=== PATIENT | female | born 1990 | race Caucasian/White ===

== ENCOUNTER → 2016-07-15 | Outpatient (CLI) | payer SELFPAY ==
[~2016-07-15] MED LIST: ALBU8.5H INH; NO ROUTINE MEDS; PRED20TA PO
== END ==
LOC: IMA 14:50
PROVIDERS: ATTEND Nurse Practitioner Family
DX: N63 Unspecified lump in breast (principal)

== ENCOUNTER 2017-05-09 12:53 | Inpatient (IN) ==
[2017-05-09] MEDS ORDERED: ZOLPIDEM 5 MG TABLET PO PRN (14:17)
[2017-05-09] MEDS ORDERED: CARBOPROST 250 MCG/ML INJECTION IM PRN (14:17)
[2017-05-09] MEDS ORDERED: METHYLERGONOVINE 0.2 MG/ML INJECTION IM PRN (14:17)
[2017-05-09] MEDS ORDERED: LIDOCAINE 1% (10mg/ml) 2mL INJ PF SDV ID PRN (14:17)
[2017-05-09] MEDS ORDERED: ACETAMINOPHEN 500 MG TABLET PO PRN (14:17)
[2017-05-09] MEDS ORDERED: CALCIUM CARBONATE Chewable 500mg TABLET PO PRN (14:17)
[2017-05-09] MEDS ORDERED: SALINE FLUSH 10ml SYRINGE IV PRN (14:17)
[2017-05-09] MEDS ORDERED: MAG-AL + SIM ORAL LIQUID 30ml PO PRN (14:17)
[2017-05-09] MEDS ORDERED: HYDROCODONE/APAP 5mg/325mg TABLET PO PRN (14:17)
[2017-05-09] MEDS: LR 1,000 ML IV PRN ×2 (20:40→21:52)
[2017-05-09] MEDS ORDERED: NALOXONE 0.4 MG/ML INJECTION IVP PRN (21:52)
[2017-05-09] MEDS ORDERED: DiphenhydrAMINE 50 MG/ML INJECTION IVP PRN (21:52)
[2017-05-09] MEDS ORDERED: ROPIVACAINE 1% 10MG/ML INJ 200 MG, SUFentanil 50 MCG in NS 100 ML EPI PRN (21:52)
[2017-05-09] MEDS ORDERED: ONDANSETRON 4 MG/2 ML INJECTION IVP PRN (21:52)
--- NOTE | 2017-05-09 21:52 | Anesthesia Preoperative Report ---
Anesthesia Epidural/Spinal Rec - Date and Time Date: 05/09/17 Preoperative Diagnosis: , 37+4 Procedure: Labor Epidural Plan: Epidural - Vital Signs /Para: P:0 Heart Rate: 140 - Medictaions & Allergies Inpatient Medications: Current Medications Acetaminophen (Tylenol) 500 - 1,000 mg PO Q4H PRN PRN Reason: Pain Hydrocodone Bitart/Acetaminophen ([place] 5/325) 1 - 2 tab PO Q4H PRN PRN Reason: Pain Al Hydroxide/Mg Hydroxide (Maalox Plus) 30 ml PO Q3H PRN PRN Reason: Indigestion Calcium Carbonate (Tums) 500 - 1,000 mg PO Q2H PRN PRN Reason: Indigestion Carboprost Tromethamine (Hemabate) 250 mcg IM O PRN PRN Reason: .Downtime Lactated Ringer's (Lactated Ringers) 1,000 mls @ 999 mls/hr IV .Q1H1M PRN Last Admin: 05/09/17 20:40 Dose: 999 mls/hr Lidocaine HCl (Xylocaine-Mpf 1% Vial) 0.2 mg ID O PRN PRN Reason: IV Start Methylergonovine Maleate (Methergine) 0.2 mg IM O PRN Misoprostol (Cytotec) 800 mcg IN ONCE PRN Sodium Chloride (Iv Flush) 10 - 80 ml IV PRN PRN PRN Reason: Flushing Zolpidem Tartrate (Ambien) 5 mg PO O PRN PRN Reason: Insomnia Allergies/Adverse Reactions: Allergies Allergy/AdvReac Type Severity Reaction Status Date / Time No Known Allergies Allergy Verified 05/07/17 23:58 - Home Medications Home Medications: Home Medications Medication Instructions Recorded Confirmed Type Multi Tablet 1 tab PO DAILY 12/16/16 12/16/16 History - Medical History Respiratory: Reports: Asthma (REACTIVE AIRWAY DISEASE), Pneumonia, Other ( PLEURSY) Gastrointestional: Reports: Gastroesophageal Reflux Disease Neuro/Musculoskeletal: Reports: Depression, Other (MULTIPLE ARM FRACTURES) Other History: Reports: Anesthesia Reactions (strange reaction after wisdom teeth anesthesia), Now (due 05/23/2017) - Surgical History Hx Family Anesthesia Reaction: No - Social History Smoking Status: Former smoker Substance Use Type: does not use Alcohol Intake Frequency: does not drink - Pertinent Findings Lab Data: CBC and BMP 05/09/17 14:41 05/09/17 14:40 BMP 05/09/17 14:40 Sodium 140 Potassium 4.1 Chloride 109 H Carbon Dioxide 22 BUN 7.0 Creatinine 0.6 L Glucose 107 Calcium 9.7 Liver Function 05/09/17 Range/Units 14:40 Total Bilirubin < 0.10 L (0.20-1.30) MG/DL AST 19 (14-36) U/L ALT 22 (9-52) U/L Alkaline Phosphatase 185 H (38-126) U/L Albumin 3.5 (3.5-5.0) G/DL - Physical Exam Respiratory Exam: lungs clear, bilateral breath sounds equal Cardiovascular Exam: regular rate and rhythm, no murmur - Airway Assessment Mallampati Score: III TMD: 2 Fingerbreadths Neck Extension: fair Overall Assessment: may be difficult intubation - ASA ASA Score: 3 - Discussion Discussion: Discussed risks/options/alternatives of anesthesia and questions answered. Patient consents. Nursing pain assessment noted. Attestation Statement: Prior to the delivery of any anesthetic medication, I examined the patient, developed the plan, obtained the patient's consent and discussed the risk and benefits of the procedure with the patient/guardian.
[2017-05-10] MEDS: LR 1,000 ML IV PRN (02:02)
[2017-05-10] MEDS ORDERED: DiphenhydrAMINE 25 MG CAPSULE PO PRN (09:02)
[2017-05-10] MEDS ORDERED: HYDROCORTISONE 2.5% CREAM 30gm RECTALLY PRN (09:02)
[2017-05-10] MEDS ORDERED: CALCIUM CARBONATE Chewable 500mg TABLET PO PRN (09:02)
[2017-05-10] MEDS ORDERED: OXYTOCIN DRIP 30 UNIT/500 ML ML IV SCH (09:02)
[2017-05-10] MEDS ORDERED: ACETAMINOPHEN 500 MG TABLET PO PRN (09:02)
[2017-05-10] MEDS ORDERED: MAG-AL + SIM ORAL LIQUID 30ml PO PRN (09:02)
--- NOTE | 2017-05-10 09:32 | Labor and Delivery Note ---
DATE: 05/10/2017 BRIEF DESCRIPTION Ms. Sargent progressed well in spontaneous labor. She began to push at the complete and +2 presentation. She pushed for about an hour and a half, delivering the head in the OA presentation. She continued to push and then delivered the baby in total. Baby was then bulb suctioned and placed on mother's abdomen. After about 2-1/2 minutes the cord was doubly clamped and cut. This is a liveborn female with Apgars of 8/9/9. She weighed 8 pounds, 0.2 ounces. After a short while the placenta delivered spontaneously intact. It had an accessory lobe but otherwise normal configuration and normal appearing three-vessel cord with normal coiling. There was a first-degree midline laceration that was hemostatic and not repaired and a superficial left labial laceration that was also hemostatic and not repaired. Total blood loss was approximately 400 cc. At the time of this dictation mother and baby are doing well. [facility]
[2017-05-10] MEDS: PRENATAL VITAMIN TABLET PO SCH (10:39)
[2017-05-10] MEDS: DOCUSATE CALCIUM 240 MG CAPSULE PO SCH (10:39)
[2017-05-10] MEDS: IBUPROFEN 800 MG TABLET PO PRN ×2 (10:47→18:38)
[2017-05-10 13:01] VITALS: BMI 37.3
[2017-05-10] MEDS: HYDROCODONE/APAP 5mg/325mg TABLET PO PRN ×2 (14:21→18:39)
[2017-05-11] MEDS: HYDROCODONE/APAP 5mg/325mg TABLET PO PRN ×4 (00:08→18:06)
[2017-05-11] MEDS: DOCUSATE CALCIUM 240 MG CAPSULE PO SCH (10:12)
[2017-05-11] MEDS: PRENATAL VITAMIN TABLET PO SCH (10:13)
--- NOTE | 2017-05-11 11:41 | OB/GYN Progress Note ---
OB-PP Progress Note - General PPD1 Maternal Group B Strep: Negative Maternal Rubella Status: Immune - Subjective Date: 05/11/17 Lochia: Minimal Pain: controlled Voiding: voiding - Objective Vital Signs: Last Vital Signs Temp 97.8 F 05/11/17 08:26 Pulse 98 05/11/17 08:26 Resp 18 05/11/17 08:26 BP 135/84 05/11/17 08:26 Pulse Ox 100 05/10/17 23:30 General: alert and oriented Abdomen: fundus firm, non-tender Extremities: non-tender Edema Degree: 1+ Laboratory: Laboratory Results - last 24 hr 05/10/17 05/10/17 12:24 12:24 WBC 16.0 H RBC 3.56 L Hgb 10.9 L Hct 32.4 L MCV 91.0 MCH 30.6 MCHC 33.6 RDW Std Deviation 44.0 Plt Count 144 MPV 10.6 Turbidity < 20 Sodium 139 Potassium 4.3 Chloride 109 H Carbon Dioxide 23 Anion Gap 7 BUN 7.0 Creatinine 0.7 GFR Calculation 103 BUN/Creatinine Ratio 10 Glucose 67 Calculated Osmolality 264 Calcium 9.0 Total Bilirubin 0.20 Conjugated Bilirubin 0.00 Unconjugated Bilirubin 0.00 Icterus Index < 2 AST 32 D ALT 28 Alkaline Phosphatase 166 H Total Protein 6.0 L Albumin 3.0 L Globulin 3.0 Albumin/Globulin Ratio 1.0 L Specimen Hemolysis < 15 - Assessment Assessment: , Preeclampsia (Mild) - Plan Plan: routine care, discharge home, continue PNV Follow up 1 week for BP check.
[2017-05-11] MEDS: IBUPROFEN 800 MG TABLET PO PRN (12:22)
[2017-05-12] MEDS: HYDROCODONE/APAP 5mg/325mg TABLET PO PRN ×2 (00:30→06:26)
[2017-05-12 00:56] VITALS: O2SAT 100
[2017-05-12] MEDS: IBUPROFEN 800 MG TABLET PO PRN (06:26)
[2017-05-12 06:28] VITALS: BP 142/84; PULSE 83; RESP 20; TEMP 97.8
--- NOTE | 2017-05-12 08:03 | OB/GYN Progress Note ---
OB-PP Progress Note - General PPD2 Maternal Group B Strep: Negative Maternal Rubella Status: Immune General: She decided to stay an extra night because baby needed to have repeat lab today. - Subjective Date: 05/12/17 Lochia: Minimal Pain: controlled Voiding: voiding - Objective Vital Signs: Last Vital Signs Temp 97.8 F 05/12/17 06:27 Pulse 83 05/12/17 06:27 Resp 20 05/12/17 06:27 BP 142/84 H 05/12/17 06:27 Pulse Ox 100 05/12/17 00:00 General: alert and oriented - Assessment Assessment: , Preeclampsia - Plan Plan: routine care, discharge home, continue PNV
== END 2017-05-12 09:50 | disposition home or self-care (01) | DRG 775 ==
LOC: MC 14:13
PROVIDERS: ADMIT Obstetrics & Gynecology; ATTEND Obstetrics & Gynecology